=== PATIENT | male | born 1985 | race Caucasian/White ===

== ENCOUNTER 2017-03-04 23:52 | Emergency (ER) | payer OTHER ==
[2017-03-05 00:01] VITALS: BP 139/91
--- NOTE | 2017-03-05 00:46 | EDM.PDOC ---
ED HPI RENAL/ - General Chief Complaint: Genitourinary Problem Stated Complaint: Sharp pain to bladder, low abdomen Time Seen by Provider: 03/05/17 00:00 Source of Information: Reports: Patient History Limitations: Reports: No limitations - History of Present Illness INITIAL COMMENTS - FREE TEXT/NARRATIVE: Patient complains of sharp pain to the bladder, feeling like he is not emptying when voiding, having frequency. He also states his urethra tineo, but is soothed during urination. No drainage noted. He is and does deny any other sexual partners. He denies fever, chills, shortness of breath. He states this pain has been ongoing for about 1 week. He says [facility] which [facility]. he also complains of bilateral flank pain. He is a 1/2 PPD smoker, uses chewing tobacco. He has no other complaints. Rates pain a 5/10. No medical history. Symptom Onset Date: 02/26/17 Timing/Duration: Reports: Gradual onset Location: Reports: urethral, suprapubic Quality: Reports: stabbing Severity: moderate Improves with: Reports: urinating Associated Symptoms: Reports: burning, voiding small amounts - Related Data Allergies/ADRs: Allergies Allergy/AdvReac Type Severity Reaction Status Date / Time No Known Allergies Allergy Verified 03/05/17 00:01 Home Meds: Home Meds . [No Known Home Meds] 03/05/17 [History] Past Medical History - Past Health History Medical/Surgical History: Denies Medical/Surgical History ED ROS GENERAL - Review of Systems Review Of Systems: See Below Constitutional: Reports: no symptoms HEENT: Reports: No symptoms Respiratory: Reports: No Symptoms Cardiovascular: Reports: No symptoms Endocrine: Reports: no symptoms GI/Abdominal: Reports: No symptoms : Reports: dysuria, frequency, urinary retention Musculoskeletal: Reports: no symptoms Skin: Reports: no symptoms Neurological: Reports: No Symptoms Psychiatric: Reports: No symptoms Hematologic/Lymphatic: Reports: no symptoms Immunologic: Reports: no symptoms ED EXAM, RENAL/ - Physical Exam Exam: See Below Exam Limited By: No limitations General Appearance: alert, WD/WN, mild distress Eye Exam: bilateral eye: EOMI, PERRL Throat/Mouth: Normal inspection, Normal oropharynx Head: atraumatic, normocephalic Neck: normal inspection, supple, non-tender, full range of motion Respiratory/Chest: no respiratory distress, no accessory muscle use, chest non- tender, rhonchi Cardiovascular: normal peripheral pulses, regular rate, rhythm, no edema GI/Abdominal: normal bowel sounds, soft, non tender, no organomegaly Back Exam: normal inspection, full range of motion. No: CVA tenderness (L), CVA tenderness (R) Extremities: normal inspection, normal range of motion, non-tender, no pedal edema, normal capillary refill Neurological: alert, oriented, CN II-XII intact, normal cognition, normal gait, normal reflexes, no motor/sensory deficits Psychiatric: normal affect, normal mood Skin Exam: Warm, Dry, Intact Lymphatic: no adenopathy Course - Vital Signs Last Recorded V/S: Last Vital Signs Temp 35.7 C 03/04/17 23:58 Pulse 81 03/04/17 23:58 Resp 16 03/04/17 23:58 BP 139/91 H 03/04/17 23:58 Pulse Ox 98 03/04/17 23:58 - Orders/Labs/Meds Orders: Active Orders 24 hr Category Date Time Status CHLAMYDIA/GC NUCLEIC ACID AMP [MREF] Routine Lab 03/05/17 00:15 Uncollected UA W/MICROSCOPIC [URIN] Stat Lab 03/05/17 00:10 Uncollected Labs: Laboratory Tests 03/05/17 Range/Units 00:05 Urine Color Dark yellow H (YELLOW) Urine Appearance Clear (CLEAR) Urine pH 6.0 (5.0-8.0) Ur Specific [place] 1.025 Urine Protein Negative (NEGATIVE) mg/dL Urine Glucose (UA) Negative (NEGATIVE) mg/dL Urine Ketones Negative (NEGATIVE) mg/dL Urine Occult Blood Negative (NEGATIVE) Urine Nitrite Negative (NEGATIVE) Urine Bilirubin Negative (NEGATIVE) Urine Urobilinogen 0.2 (0.2) EU/dL Ur Leukocyte Esterase Negative (NEGATIVE) Departure - Departure Time of Disposition: 02:01 Disposition: Home, Self-Care 01 Condition: good Clinical Impression: Urethritis, unspecified Instructions: Prostatitis, [id number], Urethritis, Adult Forms: ED Department Discharge Additional Instructions: We should have the results of your PSA, Gonococcal, and Chlamydia tests on Thursday. We will call you with the need to start any antibiotics. If you do not hear from us, everything did come back normal or negative. If you do not improve, please see your primary doctor for follow up. You can call us anytime with any questions or concerns. - Problem List & Annotations (1) Urethritis, unspecified SNOMED Code(s): 32546447 Code(s): N34.2 - OTHER URETHRITIS Status: Acute Priority: Low Current Visit: Yes - Problem List Review Problem List Initiated/Reviewed/Updated: Yes - My Orders Last 24 Hours: My Active Orders 03/05/17 00:10 UA W/MICROSCOPIC [URIN] Stat 03/05/17 00:15 CHLAMYDIA/GC NUCLEIC ACID AMP [MREF] Routine - Assessment/Plan Last 24 Hours: My Active Orders 03/05/17 00:10 UA W/MICROSCOPIC [URIN] Stat 03/05/17 00:15 CHLAMYDIA/GC NUCLEIC ACID AMP [MREF] Routine Assessment:: Urethritis Plan: We should have the results of your PSA, Gonococcal, and Chlamydia tests on Thursday. We will call you with the need to start any antibiotics. If you do not hear from us, everything did come back normal or negative. If you do not improve, please see your primary doctor for follow up. You can call us anytime with any questions or concerns.
[2017-03-05] MEDS ORDERED: Azithromycin 250 MG Tab PO ONE (01:50)
[2017-03-05] MEDS ORDERED: cefTRIAXone 500 MG, Lidocaine 1% 1 ML IM ONE ×2 (01:50)
== END 2017-03-05 02:20 | disposition home or self-care (01) ==
LOC: VM.ED 23:52
DX: N34.2 Other urethritis (principal)
CPT/HCPCS: 36415; 81001; 83605; 84153; 85025; 86140; 87491; 87591; 96372; 99284; A9270; J0696; 99283-GF